=== PATIENT | male | born 1970 | race Caucasian/White ===

== ENCOUNTER 2017-06-09 16:03 | Emergency (ER) | payer OTHER ==
[~2017-06-09] VITALS: Ht 182.9 cm; Wt 102.7 kg
[~2017-06-09 16:03] MED LIST: HYDROCODON-ACE1 EAC7 PO
[2017-06-09 16:45] LABS: HEMATOCRIT 45.1 % (38.0-50.0); MCH 29.8 PG (29.0-34.0); MCHC 34.4 G/DL (30.0-36.0); MCV 86.6 FL (86-99); MEAN PLAT.VOLUME 9.5 uM^3 (9.0-12.4); PLATELET COUNT 573 K/uL (156-360); RBC DIS.WIDTH-CV 13.1 % (11.8-14.6); RBC DIS.WIDTH-SD 41.1 % (39-53); RED BLOOD COUNT 5.21 M/uL (4.00-5.50)
[2017-06-09 17:00] LABS: CHLORIDE 103 mEq/L (99-109); POTASSIUM 4.1 mEq/L (3.7-5.4); SODIUM 138 mEq/L (136-147)
[2017-06-09 17:01] LABS: GLUCOSE 102 mg/dL (70-99)
[2017-06-09 17:03] LABS: ANION GAP 12 MEQ/L (2-14)
[2017-06-09 17:05] LABS: GFR ESTIMATE (CALCULATED) > 59 mL/min/
[2017-06-09 17:06] LABS: UREA NITROGEN (BUN) 15 mg/dL (9-23)
[2017-06-09 17:42] LABS: ADD MIUA? NO; BILIRUBIN NEGATIVE; BLOOD NEGATIVE; COLOR YELLOW ((YELLOW)); GLUCOSE (STRIP) 150; KETONES NEGATIVE; LEUKOCYTES NEGATIVE; NITRITE NEGATIVE; PROTEIN (STRIP) NEGATIVE; SPECIFIC GRAVITY 1.019 (1.000-1.030); UCUL ADDED? NO; UROBILINOGEN 0.2 MG/DL (0.2-1.0)
[2017-06-09] MEDS ORDERED: ULTRAM50 MG PO (19:39)
[2017-06-09 20:31] VITALS: BP 162/99
== END 2017-06-09 20:33 | disposition home or self-care (01) ==
LOC: EME 16:03
PROVIDERS: Emergency Medicine
DX: R10.9 Unspecified abdominal pain (principal); K21.9 Gastro-esophageal reflux disease without esophagitis; Z87.891 Personal history of nicotine dependence
CPT/HCPCS: 74176; 80048; 81003; 85027; 99281; 99285; J1885; J2405; J7030